=== PATIENT | female | born 1995 | race Caucasian/White ===

== ENCOUNTER 2020-12-09 09:50 | Emergency (ER) | payer SELFPAY ==
[2020-12-09 10:00] VITALS: BP 143/86; PULSE 75; RESP 18; TEMP 36.9; O2SAT 99; BMI 42.5
--- NOTE | 2020-12-09 10:08 | W.ED.SKABFB ---
HPI - Skin/Abscess/Foreign Bdy General: Chief complaint: Skin/Abscess/Foreign Body Stated complaint: Spreading Rash/Blisters Time Seen by Provider: 12/09/20 10:04 Source: patient Mode of arrival: ambulatory Limitations: no limitations History of Present Illness: HPI narrative: Patient woke up this morning with small pruritic rash to the right anterior neck. Unknown exposure the area. Patient denies any other problems. She denies any shortness of breath or chest pain. No swelling to the mouth or tongue. Patient unsure if she is exposed to poison micki or not. MD complaint: rash Onset (ago): hour(s) (Started this morning) Location: neck Severity: mild Quality: pruritic Pain Consistency: constant Relieving factors: none Exacerbating factors: none Context: none Associated symptoms: Reports itching; Deny arthralgias, chills, cough, fever(s), myalgias, nausea, rigidity, short of breath or vomiting Treatments prior to arrival: none Review of Systems Const: Denies: fever(s) or chills Eyes: Denies: change in vision ENMT: Denies: throat pain Card: Denies: chest pain or palpitations Resp: Denies: dyspnea or wheezing GI: Denies: nausea or vomiting : Denies: flank pain Musc: Denies: neck pain or back pain Skin/Breast: Reports: rash, pruritus and new lesions Neuro: Denies: headache(s) or numbness in extremities Psych: Denies: anxiety Pedro/Lymph: Denies: enlarged lymph nodes Physical Exam Const: COMMON NORMALS: no acute distress, patient oriented x3, no limitations, healthy appearing, alert and well nourished HENMT: COMMON NORMALS: normocephalic and atraumatic HEAD & SCALP: normocephalic and atraumatic Eye: COMMON NORMALS: EOMs intact bilaterally Neck/C-Spine: COMMON NORMALS: full ROM, no lymphadenopathy, supple, no meningeal signs and no JVD OTHER: 3 or 4 small vesicles to the right anterior neck with the erythematous base. Appears consistent with contact dermatitis such as poison micki. No abscess. No cellulitis Lymph: LYMPHATIC: no lymphadenopathy noted Chest: COMMONS NORMALS: normal inspection of the chest and normal palpation of entire chest wall Resp: COMMON NORMALS: normal respiratory effort and No retractions Cardio: COMMON NORMALS: no JVD, regular rate and regular rhythm RATE: regular rate RHYTHM: regular rhythm GI: COMMON NORMALS: Normal to inspection, nondistended, normoactive bowel sounds present (Obese) Extremity: COMMON NORMALS: normal to inspection and full ROM Neuro: COMMON NORMALS: patient oriented x3, moves all extremities, no focal motor deficits and no sensory deficits noted SENSORIUM/ORIENTATION: Yes alert MENINGEAL SIGNS: Yes no meningeal signs Psych: COMMON NORMALS: mental status grossly normal, Normal thought process present, cooperative, normal affect and speech normal SPEECH: Yes normal speech THOUGHT PROCESS: Normal thought process present Skin: GENERAL SKIN EXAM: other (Small vesicles with erythematous base to right anterior neck ) OTHER: Consistent with contact dermatitis. Course Vital Signs: Vital signs: Vital Signs Temperature 98.4 F 12/09/20 10:00 Pulse Rate 75 12/09/20 10:00 Respiratory Rate 18 12/09/20 10:00 Blood Pressure 143/86 12/09/20 10:00 Pulse Oximetry 99 12/09/20 10:00 Discharge Plan Discharge Patient Disposition: Home Clinical Impression: Contact dermatitis Qualifiers: Contact dermatitis type: irritant Contact dermatitis trigger: non-food plants Qualified Code(s): L24.7 - Irritant contact dermatitis due to plants, except food Condition: Stable Prescriptions: New prednisone 20 mg tablet See Rx Instructions .ROUTE .COMPLEX 7 Days Qty: 11 RF: 1 hydrocortisone 2.5 % cream 1 applic topical TID PRN (Reason: rash) Qty: 20 RF: 0 Discharge Orders: Discharge ED (Routine); Ordered 12/09/20 Ordered By: Aaron Juan Discharge Diet: Advance as tolerated Discharge Activity: Increase activity as tolerated Patient Instructions: Contact Dermatitis (ED), Poison Micki (ED) Activity Restrictions/Additional Instructions: Avoid excessive heat. Place steroid ointment over the wounds 2-3 times a day for the next 5 to 6 days. Take oral prednisone as directed. Coding Level of Care Code ED Mechanical Equipment Test Engineer for Chg Fwd Exam Comprehensive
[2020-12-09] MEDS: predniSONE 20 mg Tablet 60 MG PO (10:13)
[2020-12-09 10:24] VITALS: PULSE 86; RESP 18
== END 2020-12-09 10:26 | disposition home or self-care (01) ==
PROVIDERS: Emergency Provider Family Medicine
DX: L24.7 Irritant contact dermatitis due to plants, except food (principal)
CPT/HCPCS: 99282; J7512

== ENCOUNTER 2021-02-15 20:34 | Emergency (ER) | payer SELFPAY ==
[2021-02-15 21:00] VITALS: BP 129/85; PULSE 78; RESP 16; TEMP 36.2; O2SAT 98; BMI 45.7
--- NOTE | 2021-02-15 22:33 | W.ED.ABDPA2 ---
HPI - Abdominal Pain General: Chief Complaint: Abdominal Pain Stated Complaint: back/abd pain Time Seen by Provider: 02/15/21 22:33 History of Present Illness: HPI narrative: Ms. Chisholm is a 25-hour lady without significant past medical history presents emerged department due to back pain and lower abdominal pain. She reports the back pain has been chronically bothering her since approximately 5 years ago. She has intermittent, not specifically provoked, episodes of exacerbation. She describes pain that radiates bilaterally from the lumbar region down both legs that is aching and burning in nature. Additionally, starting on Wednesday she began to have urinary symptoms. She describes significant lower pelvic sharp pain which she describes as like having a spike a ball in her vagina. She is currently on her period which is atypical for her, her periods are typically 3 days of heavy bleeding however this has been 9 to 10 days of spotting. Overall the intensity symptoms has worsened. The intensity is now moderate. She has tried [id number]-aqisphc medications without significant relief. No other focal infectious symptoms. Related Data: Date of Last Menstrual Period: 02/15/21 Review of Systems General: Reports: 10 or more systems reviewed and unremarkable except in HPI and below Narrative: CONSTITUTIONAL: denies fever, fatigue, weakness EYES - denies pain, denies loss of vision EARS - denies ear issues. NOSE - denies congestion or rhinorrhea. THROAT - denies sore throat or difficulty swallowing. CARDIOVASCULAR - denies chest pain and palpitations RESPIRATORY - denies shortness of breath and cough GASTROINTESTINAL -see HPI GENITOURINARY -see HPI MUSCULOSKELETAL-see HPI SKIN - denies rashes or new changed skin lesions NEUROLOGIC - denies focal weakness or sensory changes HEMATOLOGIC/LYMPHATIC - denies easy bruising or lymphadenopathy. [facility] ED Female Reproductive History: Date of last menstrual period: 02/15/21 Physical Exam Narrative: EXAM NARRATIVE: GENERAL/CONSTITUTIONAL - well-appearing. No acute distress. Eyes - PERRL, no conjunctival injection ENMT - Atraumatic external nose and ears. Moist mucous membranes NECK - supple. trachea midline CARDIOVASCULAR - regular rate and rhythm. Peripheral pulses 2+ and equal RESPIRATORY -clear to auscultation bilaterally. No retractions or accessory muscle use. ABDOMEN/GI -mild suprapubic tenderness to palpation. Nondistended. No tenderness to percussion or evidence of peritonitis GENITOURINARY -performed with manager quality compliance present. No external vulvar lesions or abnormalities. Moderate amount of white discharge noted at the vaginal vault. Cervix without acute abnormality. Bimanual exam unremarkable. MSK - Extremities without obvious deformity. No significant elicitable tenderness or deformity noted lumbar spine region. SKIN - Warm, Dry NEURO - alert and appropriately oriented. strength and sensation intact. Moves all extremities equally. PSYCH - Appropriate mood and affect Course ED course: - Patient was seen and evaluated by me at bedside - Patient placed on cardiac monitors, IV access obtained - Initial evaluation notable for somewhat uncomfortable appearing, no acute distress - Labs and imaging obtained and reviewed - Fluids, analgesia given - Labs notable for no significant hematologic or metabolic abnormalities. Urinalysis not concerning for urinary tract infection. Wet prep positive for clue cells. -I discussed the results of ED evaluation at this point with the patient. I discussed other possible etiology however most likely the cause is related to BV. I offered to CT imaging which she was comfortable foregoing at this time. - Upon serial reexamination after treatment the patient was improved - Based on patient history, evaluation, labs, and imaging as interpreted the most likely cause of the patient's condition is bacterial vaginosis - The results of ED evaluation were discussed with the patient including prescriptions and/or symptomatic cares (if applicable) including appropriate and responsible use, followup plan, and return precautions. The patient verbalized understanding and felt safe for discharge. - Patient discharged in satisfactory condition. Vital Signs: Vital signs: Vital Signs Temperature 97.2 F L 02/15/21 21:00 Pulse Rate 68 02/16/21 02:07 Respiratory Rate 18 02/16/21 02:07 Blood Pressure 113/69 02/16/21 02:07 Pulse Oximetry 97 02/16/21 02:07 MDM - Abdominal Pain Medical Records: Attestation: I reviewed the patient's medical records. Lab Data: Attestation: I reviewed the patient's lab results. Labs: Lab Results 02/15/21 02/15/21 02/16/21 Range/Units 23:21 23:21 00:35 WBC 10.2 H (4.0-10.0) 10^3/ uL RBC 4.40 (4.1-5.3) 10^6/u L Hgb 13.7 (11.5-15.3) g/dL Hct 43.9 (37.0-47.0) % MCV 99.8 H (81-99) fl MCH 31.1 (28.0-34.0) pg MCHC 31.2 (30.0-36.0) g/dL RDW 12.5 (12.1-15.1) % Plt Count 317 (130-400) 10^3/c mm MPV 10.0 (7.4-10.4) fL Neut % (Auto) 40.4 % Lymph % (Auto) 45.5 % Edwards % (Auto) 8.2 % Eos % (Auto) 5.0 % Baso % (Auto) 0.6 % Neut # (Auto) 4.13 (1.8-7.7) 10^3/u L Lymph # (Auto) 4.7 (0.8-4.8) 10^3/u L Edwards # (Auto) 0.8 (0.2-0.9) 10^3/u L Eos # (Auto) 0.5 (0.0-0.8) 10^3/u L Baso # (Auto) 0.1 (0.0-0.1) 10^3/u L Nucleated RBC % (a uto) 0 % Nucleated RBCs # 0.0 /100WBC Sodium 137 (136-145) mmol/L Potassium 4.4 (3.5-5.1) mmol/L Chloride 102 (98-107) mmol/L Carbon Dioxide 23 (22-29) mmol/L Anion Gap 16.4 (5-19) BUN 11 (6-20) mg/dL Creatinine 0.7 (0.5-0.9) mg/dL GFR Calculation 102.8 (90-130) mL/min Glucose 91 (65-115) mg/dL Calculated Osmolal ity 283 L (285-295) mOsm/k g Calcium 8.8 (8.5-10.5) mg/dL Total Bilirubin 0.2 (0.15-1.2) mg/dL AST 13 (0-32) U/L ALT 12 (0-33) U/L Alkaline Phosphata se 62 (35-105) IU/L Total Protein 7.1 (6.6-8.7) g/dL Albumin 4.0 (3.5-5.2) g/dL Globulin 3.1 (1.3-4.6) g/dL HCG, Qual Negative (Negative) Urine Color (Yellow) Urine Appearance (CLEAR) Urine pH (5-7) Ur Specific Gravit y (1.005-1.030) Urine Protein (Negative) Urine Glucose (UA) (Normal) Urine Ketones (Negative) Urine Blood (Negative) Urine Nitrate (Negative) Urine Bilirubin (Negative) Urine Urobilinogen (Negative) mg/dL Ur Leukocyte Makayla ase (Negative) 02/16/21 Range/Units 00:35 WBC (4.0-10.0) 10^3/ uL RBC (4.1-5.3) 10^6/u L Hgb (11.5-15.3) g/dL Hct (37.0-47.0) % MCV (81-99) fl MCH (28.0-34.0) pg MCHC (30.0-36.0) g/dL RDW (12.1-15.1) % Plt Count (130-400) 10^3/c mm MPV (7.4-10.4) fL Neut % (Auto) % Lymph % (Auto) % Edwards % (Auto) % Eos % (Auto) % Baso % (Auto) % Neut # (Auto) (1.8-7.7) 10^3/u L Lymph # (Auto) (0.8-4.8) 10^3/u L Edwards # (Auto) (0.2-0.9) 10^3/u L Eos # (Auto) (0.0-0.8) 10^3/u L Baso # (Auto) (0.0-0.1) 10^3/u L Nucleated RBC % (a uto) % Nucleated RBCs # /100WBC Sodium (136-145) mmol/L Potassium (3.5-5.1) mmol/L Chloride (98-107) mmol/L Carbon Dioxide (22-29) mmol/L Anion Gap (5-19) BUN (6-20) mg/dL Creatinine (0.5-0.9) mg/dL GFR Calculation (90-130) mL/min Glucose (65-115) mg/dL Calculated Osmolal ity (285-295) mOsm/k g Calcium (8.5-10.5) mg/dL Total Bilirubin (0.15-1.2) mg/dL AST (0-32) U/L ALT (0-33) U/L Alkaline Phosphata se (35-105) IU/L Total Protein (6.6-8.7) g/dL Albumin (3.5-5.2) g/dL Globulin (1.3-4.6) g/dL HCG, Qual (Negative) Urine Color Yellow (Yellow) Urine Appearance Clear (CLEAR) Urine pH 6.5 (5-7) Ur Specific Gravit y 1.020 (1.005-1.030) Urine Protein Neg (Negative) Urine Glucose (UA) Norm (Normal) Urine Ketones 1+ H (Negative) Urine Blood Neg (Negative) Urine Nitrate Negative (Negative) Urine Bilirubin Neg (Negative) Urine Urobilinogen Norm (Negative) mg/dL Ur Leukocyte Makayla ase Negative (Negative) Discharge Plan Discharge Patient Disposition: Home Clinical Impression: Abdominal pain, Bacterial vaginal infection, Chronic back pain Condition: Stable Prescriptions: New Flagyl 500 mg tablet 500 mg PO BID 7 Days Qty: 14 RF: 0 methocarbamol 750 mg tablet 750 mg PO TID PRN (Reason: muscle spasm) Qty: 10 RF: 0 No Action prednisone 20 mg tablet See Rx Instructions .ROUTE .COMPLEX 7 Days Qty: 11 RF: 1 hydrocortisone 2.5 % cream 1 applic topical TID PRN (Reason: rash) Qty: 20 RF: 0 Discharge Orders: Discharge ED (Routine); Ordered 02/16/21 Ordered By: Luis Armando Zee Discharge Diet: Usual diet Discharge Activity: Resume usual activity Patient Instructions: Bacterial Vaginosis (ED), Abdominal Pain (ED), Opioid Safety Activity Restrictions/Additional Instructions: Thank you for visiting the emergency department. You were seen and evaluated for lower abdominal pain. You were found to have bacterial vaginosis which was treated with antibiotics. This is an imbalance in the normal vaginal alejandro. Please follow-up with your primary care provider. Please return to the emergency department for anything that you are concerned about and feel needs emergency department evaluation. Stand Alone Forms: Work/School Release Coding Level of Care Code ED Lean Six Sigma Senior Specialist for Suzanne Mckeon
[2021-02-15 23:23] VITALS: BP 129/59; PULSE 79; RESP 18; O2SAT 98
[2021-02-15] MEDS: morphine 4 mg/mL SDV 1 mL IVP (23:23)
[2021-02-15] MEDS: methocarbamol 750 mg Tablet PO (23:23)
[2021-02-15] MEDS: ketorolac 30 mg/mL INJ 15 MG IVP (23:23)
[2021-02-15 23:41] LABS: Basophils # 0.1 10^3/uL (0.0-0.1); Basophils % 0.6 %; Eosinophils # 0.5 10^3/uL (0.0-0.8); Hematocrit 43.9 % (37.0-47.0); Hemoglobin 13.7 g/dL (11.5-15.3); Lymphocytes # 4.7 10^3/uL (0.8-4.8); Lymphocytes % 45.5 %; Mean Corpuscular HGB Conc 31.2 g/dL (30.0-36.0); Mean Corpuscular Hemoglobin 31.1 pg (28.0-34.0); Mean Corpuscular Volume 99.8 fl (81-99); Monocytes # 0.8 10^3/uL (0.2-0.9); Monocytes % 8.2 %; Neutrophils # 4.13 10^3/uL (1.8-7.7); Neutrophils % 40.4 %; Nucleated Red Blood Cells % 0 %; Platelet Count 317 10^3/cmm (130-400); Red Cell Distribution Width 12.5 % (12.1-15.1); White Blood Count 10.2 10^3/uL (4.0-10.0)
[2021-02-16 00:07] LABS: Alanine Aminotransferase 12 U/L (0-33); Alkaline Phosphatase 62 IU/L (35-105); Aspartate Amino Transferase 13 U/L (0-32); Blood Urea Nitrogen 11 mg/dL (6-20); Calcium 8.8 mg/dL (8.5-10.5); Carbon Dioxide 23 mmol/L (22-29); Chloride 102 mmol/L (98-107); Globulin 3.1 g/dL (1.3-4.6); Glomerular Filtration Rate 102.8 mL/min (90-130); Glucose 91 mg/dL (65-115); Osmolality Calculated 283 mOsm/kg (285-295); Sodium 137 mmol/L (136-145); Total Bilirubin 0.2 mg/dL (0.15-1.2); Total Protein 7.1 g/dL (6.6-8.7)
[2021-02-16 00:09] LABS: Anion Gap 16.4 (5-19); Potassium 4.4 mmol/L (3.5-5.1)
[2021-02-16 00:38] LABS: Add Urine Microscopic? NO; Charge for UA Resulting for Rev
[2021-02-16 00:42] LABS: Bilirubin Urine Neg (Negative); Blood Urine Neg (Negative); Glucose Urine UA Norm (Normal); Ketones Urine 1+ (Negative); Leukocyte Esterase Urine Negative (Negative); Nitrate Urine Negative (Negative); Protein Urine Neg (Negative); Urine Appearance Clear (CLEAR); Urine Color Yellow (Yellow); Urobilinogen Urine Norm (Negative); pH Urine 6.5 (5-7)
[2021-02-16 00:54] LABS: HCG Qualitative Urine. Negative (Negative)
[2021-02-16 02:07] VITALS: BP 113/69; PULSE 68; RESP 18; O2SAT 97
== END 2021-02-16 02:07 | disposition home or self-care (01) ==
PROVIDERS: Emergency Provider Emergency Medicine
DX: R10.9 Unspecified abdominal pain (principal); N76.0 Acute vaginitis; G89.29 Other chronic pain; M54.9 Dorsalgia, unspecified
CPT/HCPCS: 80053; 81003; 81025; 85025; 87210; 96374; 96375; 99283; E0352; J1885; J2270

== ENCOUNTER 2021-12-02 13:54 | Emergency (ER) | payer BC, MEDICAID, SELFPAY ==
[2021-12-02 14:00] VITALS: BP 145/99; PULSE 100; RESP 16; TEMP 36.7; O2SAT 96; BMI 47.8
[2021-12-02 14:06] VITALS: BP 141/75; PULSE 93; RESP 16; O2SAT 93
--- NOTE | 2021-12-02 14:31 | XR_ITS ---
WS: [id number] XR chest 1V portable [id number] REASON FOR EXAM: dyspnea/cough FINDINGS: The heart and mediastinum are within normal limits. Calcified granulomatous disease in both hemithoraces. No acute pulmonary parenchymal or pleural abnormality. Thoracic scoliosis convex left. XR/XR chest 1V portable [id number] IMPRESSION: No acute chest abnormality.
--- NOTE | 2021-12-02 14:34 | ED_ITS ---
HPI - SOB/Dyspnea General: Chief Complaint: Shortness of Breath/Dyspnea Stated Complaint: sob, tightness in chest, whezzing Time Seen by Provider: 12/02/21 14:12 Source: patient Mode of arrival: ambulatory Limitations: no limitations History of Present Illness: HPI Narrative: 26-year-old female presents emergency room complaining of cough congestion moderate sputum production for the last 2 weeks has not really tried anything beyond some fymn-jci-jmmvjji. She feels like at times she describes it as feeling drowning when she lays down denies any hemoptysis. Patient does smoke. She denies any inhaled medications no history of asthma. MD elicited complaint: shortness of breath and cough Onset (ago): week(s) (2) Timing: intermittent Severity: moderate Exacerbating factors: nothing Relieving factors: nothing Associated symptoms: Reports chest congestion, nausea and palpitations; Deny abdominal pain, chest pain, diaphoresis, dizziness, extremity pain, fever(s), hemoptysis, lightheadedness, myalgias, orthopnea, paresthesias, polydipsia, polyuria, rash, sense of impending doom, syncope or vomiting Review of Systems Const: Reports: fatigue and malaise; Denies: fever(s), chills or diaphoresis ENMT: Denies: throat pain, ear or mastoid pain, nasal discharge or nasal congestion Card: Reports: palpitations; Denies: chest pain, lightheadedness, syncope or orthopnea Resp: Reports: dyspnea, productive cough, wheezing and chest congestion; Denies: hemoptysis GI: Reports: nausea; Denies: abdominal pain or vomiting : Denies: flank pain, difficulty voiding, dysuria, urinary frequency or urinary urgency Musc: Denies: extremity pain Skin/Breast: Denies: rash or pruritus Neuro: Denies: dizziness Endo: Denies: polyuria or polydipsia PFSH ED PFSH: Medical History Chronic back pain Social History Smoking and tobacco status: former smoker Alcohol intake: never Female Reproductive History: Date of last menstrual period: 02/15/21 Physical Exam Const: GENERAL APPEARANCE: cooperative and comfortable ORIENTATION/CONSCIOUSNESS: Yes awake, Yes oriented to person, Yes oriented to place and Yes oriented to time HENMT: COMMON NORMALS: normocephalic, atraumatic and hearing grossly normal bilaterally HEAD & SCALP: normocephalic and atraumatic Resp: AUSCULTATION: wheezes (Scant expiratory wheeze) Cardio: COMMON NORMALS: regular rate, regular rhythm and No murmurs present (Cardio) RATE: regular rate RHYTHM: regular rhythm GI: COMMON NORMALS: Soft to palpation and No hepatosplenomegaly present AUSCULTATION: Yes normoactive bowel sounds PALPATION: Yes Soft to palpation, No Tenderness to palpation present (GI), No Guarding due to palpation present (GI) and Yes No hepatosplenomegaly present Extremity: COMMON NORMALS: normal to inspection, capillary refill normal, no clubbing, cyanosis or edema, no calf tenderness and no pedal edema Neuro: SENSORIUM/ORIENTATION: Yes oriented to person, Yes oriented to place and Yes oriented to time Skin: COMMON NORMALS: no rashes or lesions noted GENERAL SKIN EXAM: no rashes or lesions noted Course Vital Signs: Vital signs: Vital Signs Temperature 98.1 F 12/02/21 14:00 Pulse Rate 92 12/02/21 16:00 Respiratory Rate 12 12/02/21 16:00 Blood Pressure 141/86 12/02/21 16:00 Pulse Oximetry 94 12/02/21 16:00 MDM - SOB/Dyspnea Medical Decision Making Treated for reactive airways steroid taper albuterol inhaler also add doxycycline recheck with primary care if not improving the next 3 to 4 days. Medical Records I reviewed the patient's medical records. Lab Data I reviewed the patient's lab results. : 12/02/21 14:41 12/02/21 14:41 Labs/Radiology: Radiology Impressions Chest X-Ray 12/02/21 14:31 IMPRESSION: No acute chest abnormality. Laboratory Results WBC 8.7 10^3/uL (4.0-10.0) 12/02/21 14:41 RBC 4.48 10^6/uL (4.1-5.3) 12/02/21 14:41 Hgb 13.6 g/dL (11.5-15.3) 12/02/21 14:41 Hct 41.2 % (37.0-47.0) 12/02/21 14:41 MCV 92.0 fl (81-99) 12/02/21 14:41 MCH 30.4 pg (28.0-34.0) 12/02/21 14:41 MCHC 33.0 g/dL (30.0-36.0) 12/02/21 14:41 RDW 12.7 % (12.1-15.1) 12/02/21 14:41 Plt Count 330 10^3/cmm (130-400) 12/02/21 14:41 MPV 9.4 fL (7.4-10.4) 12/02/21 14:41 Neut % (Auto) 47.6 % 12/02/21 14:41 Lymph % (Auto) 40.6 % 12/02/21 14:41 Childress % (Auto) 6.2 % 12/02/21 14:41 Eos % (Auto) 4.8 % 12/02/21 14:41 Baso % (Auto) 0.5 % 12/02/21 14:41 Neut # (Auto) 4.13 10^3/uL (1.8-7.7) 12/02/21 14:41 Lymph # (Auto) 3.5 10^3/uL (0.8-4.8) 12/02/21 14:41 Childress # (Auto) 0.5 10^3/uL (0.2-0.9) 12/02/21 14:41 Eos # (Auto) 0.4 10^3/uL (0.0-0.8) 12/02/21 14:41 Baso # (Auto) 0.0 10^3/uL (0.0-0.1) 12/02/21 14:41 Nucleated RBC % (auto) 0 % 12/02/21 14:41 Nucleated RBCs # 0.0 /100WBC 12/02/21 14:41 Sodium 137 mmol/L (136-145) 12/02/21 14:41 Potassium 4.6 mmol/L (3.5-5.1) 12/02/21 14:41 Chloride 101 mmol/L (98-107) 12/02/21 14:41 Carbon Dioxide 27 mmol/L (22-29) 12/02/21 14:41 Anion Gap 13.6 (5-19) 12/02/21 14:41 BUN 14 mg/dL (6-20) 12/02/21 14:41 Creatinine 0.9 mg/dL (0.5-0.9) 12/02/21 14:41 GFR Calculation 76.3 mL/min (90-130) L 12/02/21 14:41 Glucose 92 mg/dL (65-115) 12/02/21 14:41 Calculated Osmolality 284 mOsm/kg (285-295) L 12/02/21 14:41 Calcium 9.5 mg/dL (8.5-10.5) 12/02/21 14:41 Total Bilirubin 0.2 mg/dL (0.15-1.2) 12/02/21 14:41 AST 15 U/L (0-32) 12/02/21 14:41 ALT 12 U/L (0-33) 12/02/21 14:41 Alkaline Phosphatase 71 IU/L (35-105) 12/02/21 14:41 Total Protein 8.0 g/dL (6.6-8.7) 12/02/21 14:41 Albumin 4.5 g/dL (3.5-5.2) 12/02/21 14:41 Globulin 3.5 g/dL (1.3-4.6) 12/02/21 14:41 Discharge Plan Discharge Patient Disposition: Home Clinical Impression: Bronchitis Condition: Stable Prescriptions: New Medrol (Feng) 4 mg tablets,dose pack See Rx Instructions .ROUTE .COMPLEX Qty: 21 0RF Rx Instructions: orally per package directions albuterol sulfate 90 mcg/actuation HFA aerosol inhaler 2 inh INHALATION Q4H PRN (Reason: shortness of breath or wheezing) Qty: 18 0RF No Action Sahra 60 mg Tablet 60 mg PO BID PRN (Reason: Allergy Symptoms) 0RF Karen-[place] Plus Sinus-Cough 5-10-325 mg Capsule See Rx Instructions .ROUTE .COMPLEX 0RF Rx Instructions: per package directions Discharge Orders: Discharge ED (Routine); Ordered 12/02/21 Ordered By: Aidan Ibrahim Discharge Diet: Usual diet Discharge Activity: Increase activity as tolerated Patient Instructions: Opioid Safety Activity Restrictions/Additional Instructions: Chest x-ray is normal the remainder labs are unremarkable. Peers to have a viral bronchitis. We will have you start steroids and albuterol to use as needed. Follow-up with primary care if not improving. Coding Level of Care Code ED Printer Operator for Chg Fwd Exam Comprehensive
[2021-12-02 14:54] LABS: Basophils % 0.5 %; Eosinophils # 0.4 10^3/uL (0.0-0.8); Eosinophils % 4.8 %; Hematocrit 41.2 % (37.0-47.0); Hemoglobin 13.6 g/dL (11.5-15.3); Lymphocytes # 3.5 10^3/uL (0.8-4.8); Lymphocytes % 40.6 %; Mean Corpuscular Hemoglobin 30.4 pg (28.0-34.0); Mean Platelet Volume 9.4 fL (7.4-10.4); Monocytes # 0.5 10^3/uL (0.2-0.9); Monocytes % 6.2 %; Neutrophils # 4.13 10^3/uL (1.8-7.7); Neutrophils % 47.6 %; Nucleated Red Blood Cells % 0 %; Platelet Count 330 10^3/cmm (130-400); Red Blood Count 4.48 10^6/uL (4.1-5.3); Red Cell Distribution Width 12.7 % (12.1-15.1); White Blood Count 8.7 10^3/uL (4.0-10.0)
[2021-12-02 15:09] LABS: Alanine Aminotransferase 12 U/L (0-33); Albumin Level 4.5 g/dL (3.5-5.2); Alkaline Phosphatase 71 IU/L (35-105); Anion Gap 13.6 (5-19); Aspartate Amino Transferase 15 U/L (0-32); Blood Urea Nitrogen 14 mg/dL (6-20); Calcium 9.5 mg/dL (8.5-10.5); Carbon Dioxide 27 mmol/L (22-29); Chloride 101 mmol/L (98-107); Globulin 3.5 g/dL (1.3-4.6); Glomerular Filtration Rate 76.3 mL/min (90-130); Glucose 92 mg/dL (65-115); Osmolality Calculated 284 mOsm/kg (285-295); Potassium 4.6 mmol/L (3.5-5.1); Sodium 137 mmol/L (136-145); Total Bilirubin 0.2 mg/dL (0.15-1.2)
[2021-12-02] MEDS: sodium chloride 0.9% 1,000 ML 999 ML IV (15:12)
[2021-12-02 15:31] VITALS: BP 141/85; PULSE 85; RESP 16; O2SAT 94
[2021-12-02 15:37] VITALS: PULSE 83; RESP 16; O2SAT 96
[2021-12-02] MEDS: ipratropium-albuterol 3 mL Neb INHALATION (15:37)
[2021-12-02 15:42] VITALS: PULSE 86
[2021-12-02 16:00] VITALS: BP 141/86; PULSE 92; RESP 12; O2SAT 94
== END 2021-12-02 16:28 | disposition home or self-care (01) ==
PROVIDERS: Emergency Provider Family Medicine
DX: J40 Bronchitis, not specified as acute or chronic (principal); Z87.891 Personal history of nicotine dependence
CPT/HCPCS: 71045; 80053; 85025; 94640; 96361; 96374; 99284; J2930; J7030

== ENCOUNTER → 2022-03-06 10:13 | Outpatient (BNVA) | payer BC, MEDICAID, SELFPAY | PROVIDERS: Visit Provider Family Medicine | DX: Z11.3 Encounter for screening for infections with a predominantly sexual mode of transmission (principal); N93.9 Abnormal uterine and vaginal bleeding, unspecified; Z12.4 Encounter for screening for malignant neoplasm of cervix; M54.9 Dorsalgia, unspecified; G89.29 Other chronic pain; M72.2 Plantar fascial fibromatosis; Z68.42 Body mass index [BMI] 45.0-49.9, adult | CPT/HCPCS: 80053; 81000; 81025; 82728; 83036; 83550; 84439; 84443; 85025; 87491; 87591; 87661; 88175 ==

== ENCOUNTER 2022-03-19 13:26 | Outpatient (CLI) | payer BC, MEDICAID, SELFPAY ==
--- NOTE | 2022-03-19 13:15 | US_ITS ---
WS: [id number] TRANSVAGINAL PELVIC ULTRASOUND HISTORY: abnormal vaginal bleeding COMPARISON: None available. Uterus: 10.0 cm x 5.6 cm x 6.6 cm. Mildly enlarged anteverted uterus. No fibroid or mass. Endometrium: 0.7 cm. Normal homogeneity. No increased vascularity. Normal size. Right ovary: 4.8 cm x 4.3 cm x 3.8 cm. Ovaries slightly enlarged secondary to a cyst. A simple cyst a ssociated with the ovary measuring 4.0 x 3.3 x 3.2 cm. Good through transmission. No solid component. Left ovary: Poorly visualized ovary. Seen only on transabdominal imaging and not well visualized due to its position. No additional adnexal mass. No free fluid. US/US transvaginal [id number] IMPRESSION: 1. Normal endometrium. 2. Small RIGHT ovarian cyst measures 4.0 x 3.3 x 3.2 cm. 3. LEFT ovary is not well visualized.
== END 2022-03-19 13:27 | disposition home or self-care (01) ==
LOC: RAD 13:27
PROVIDERS: PCP Family Medicine; Visit Provider Family Medicine
DX: N93.9 Abnormal uterine and vaginal bleeding, unspecified (principal); N83.201 Unspecified ovarian cyst, right side
CPT/HCPCS: 76830

== ENCOUNTER → 2022-06-30 15:15 | Outpatient (BNVA) | payer BC, MEDICAID, SELFPAY | PROVIDERS: PCP Family Medicine; Visit Provider Nurse Practitioner Women's Health | DX: N83.201 Unspecified ovarian cyst, right side (principal) | CPT/HCPCS: 76830 ==

== ENCOUNTER 2022-09-01 20:05 | Emergency (ER) | payer BC, MEDICAID, SELFPAY ==
[2022-09-01 20:19] VITALS: BP 173/112; PULSE 95; RESP 19; TEMP 36.7; O2SAT 98; BMI 49.9
--- NOTE | 2022-09-01 21:34 | W.ED.DENTAL ---
HPI - Dental/Oral General: Chief complaint: Dental/Oral Stated complaint: Dental Pain Time Seen by Provider: 09/01/22 21:34 History of Present Illness: 27-year-old female comes in today for complaints of left upper third molar pain. Patient has decay in the tooth with loss of the lateral side of the tooth. Patient reports it broke off earlier today and she had increased pain and discomfort since. Patient reports about 3 months ago she had problems with that same tooth. Patient appears nontoxic. Patient appears in moderate pain. Patient has a history of anemia, obesity, and planter fasciitis. Associated symptoms: Denies fever(s) Review of Systems Const: Denies: fever(s) ENMT: Reports: dental pain Card: Denies: chest pain Resp: Denies: dyspnea : Denies: difficulty voiding Musc: Denies: back pain Neuro: Denies: headache(s) PFSH ED PFSH: Medical History Chronic back pain Gestational hypertension (~2015) managed with medication; resolved post delivery No pertinent past medical history neghx: htn, dm, thyroid, dtv/pe PCP: Dr. Parada Surgical History History of 2015 Family History Family/Other Cancer Paternal aunt--lupus Grandfather Diabetes Paternal Father Diabetes Hyperlipidemia Hypertension Mother Diabetes Thyroid disease Grandmother Diabetes Paternal Denies family history of Colon cancer Ovarian cancer Heart disease Breast cancer Uterine cancer Stroke Physical Exam Const: COMMON NORMALS: alert HENMT: COMMON NORMALS: normocephalic HEAD & SCALP: normocephalic NOSE: Normal nares present MOUTH: Normal oral and palatal mucosa present TEETH & GINGIVA: Yes caries (Decayed third molar left upper jaw) and Yes fair dentition Neck/C-Spine: COMMON NORMALS: full ROM and no lymphadenopathy Resp: COMMON NORMALS: normal respiratory effort Cardio: COMMON NORMALS: regular rate RATE: regular rate Back/Pelvis: COMMON NORMALS: thoracic and lumbar spine normal to inspection Extremity: COMMON NORMALS: normal to inspection Neuro: SENSORIUM/ORIENTATION: Yes alert Skin: COMMON NORMALS: turgor normal GENERAL SKIN EXAM: turgor normal Course Vital Signs: Vital signs: Vital Signs Temperature 98.1 F 09/01/22 20:19 Pulse Rate 95 09/01/22 20:19 Respiratory Rate 19 H 09/01/22 20:19 Blood Pressure 173/112 09/01/22 20:19 Pulse Oximetry 98 09/01/22 20:19 Oxygen Delivery Me thod 09/01/22 20:19 MDM - Dental/Oral Medical Decision Making 27-year-old female comes in today with complaints of dental pain. On exam patient has a decayed third molar left upper jaw. No significant redness or swelling is noted to the gingiva. Differential diagnosis includes periapical abscess, dental caries, odontalgia. No signs of serious illness is noted. Patient be started on antibiotic for coverage of dental infection. Patient was given viscous lidocaine to help control pain. And hydrocodone for severe pain. Patient was given a list of local dental facilities and need for follow-up. Discharge Plan Discharge Patient Disposition: Home Clinical Impression: Toothache, Dental caries Condition: Stable Prescriptions: New amoxicillin-pot clavulanate 875-125 mg tablet 1 tab PO BID Qty: 14 0RF hydrocodone-acetaminophen 5-325 mg tablet 1 tab PO Q8H PRN (Reason: pain (scale score 7-10)) Qty: 7 0RF Lidocaine Viscous 2 % solution 1 applic mucous membrane Q4H PRN (Reason: pain) Qty: 100 0RF No Action norethindrone-e.estradiol-iron [Maritza Fe 1.5/30 (28)] 1.5 mg-30 mcg (21)/75 mg (7) tablet 1 tab PO DAILY Qty: 84 3RF Discharge Orders: Discharge ED (Routine); Ordered 09/01/22 Ordered By: Delfino Gloria Referrals: Odin Parada MD [Primary Care Provider] - Discharge Diet: Usual diet Discharge Activity: Increase activity as tolerated Patient Instructions: Toothache (ED), Opioid Safety Activity Restrictions/Additional Instructions: Good oral care. Use acetaminophen ibuprofen to control pain. Use viscous lidocaine saturated on a cottonball and applied to the hole in the tooth for improved pain control. Use hydrocodone for severe pain. Drink plenty of water with medications. Take antibiotic as directed. Follow-up with dentist for definitive care. 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
[2022-09-01] MEDS: lidocaine 2% viscous 15 mL UDC 5 ML MUCOUS MEM (21:52)
[2022-09-01] MEDS: HYDROcodone-acetaminophen 7.5-325 mg Tablet 1 TAB PO (21:52)
[2022-09-01] MEDS: amoxicillin-clav 875-125 mg Tablet 1 TAB PO (21:52)
== END 2022-09-01 21:49 | disposition home or self-care (01) ==
PROVIDERS: Emergency Provider Nurse Practitioner Family; PCP Family Medicine
DX: K02.9 Dental caries, unspecified (principal); K08.89 Other specified disorders of teeth and supporting structures
CPT/HCPCS: 99283

== ENCOUNTER 2022-10-09 12:53 | Emergency (ER) | payer BC, MEDICAID, SELFPAY ==
[2022-10-09 13:02] VITALS: BP 153/95; PULSE 85; RESP 19; TEMP 36.7; O2SAT 97; BMI 45.7
--- NOTE | 2022-10-09 15:15 | XRR_ITS ---
PROCEDURE INFORMATION: Exam: XR Thoracic Spine Exam date and time: 10/09/2022 3:23 PM Age: 27 years old Clinical indication: Pain and injury or trauma; Fall; Blunt trauma (contusions or hematomas); Pain in thoracic spine; Additional info: Fall with back pain TECHNIQUE: Imaging protocol: Radiologic exam of the thoracic spine. Views: 3 views. COMPARISON: CR XR chest 1V portable [id number] 12/02/2021 3:12 PM FINDINGS: Bones/joints: Vertebral body height is maintained. No subluxation. Normal bone mineralization. Intervertebral disc space height is preserved. No acute fracture. Stable mild scoliosis in the visualized spine. Soft tissues: No paravertebral soft tissue abnormality. No radiopaque foreign body. Lungs: Visualized lungs are clear. XR/XR thoracic spine 3V* [id number] IMPRESSION: 1. No acute fracture of the thoracic spine. CT scan would be recommended if there is continuing clinical concern for fracture. 2. Stable mild scoliosis in the visualized spine.
--- NOTE | 2022-10-09 15:15 | XRR_ITS ---
PROCEDURE INFORMATION: Exam: XR Lumbosacral Spine Exam date and time: 10/09/2022 3:23 PM Age: 27 years old Clinical indication: Pain and injury or trauma; Fall; Blunt trauma (contusions or hematomas); Low back pain; Additional info: Fall with back pain TECHNIQUE: Imaging protocol: Radiologic exam of the lumbosacral spine. Views: 2 or 3 views. COMPARISON: US transvaginal [id number] 06/30/2022 3:18 PM FINDINGS: Bones/joints: 5 [id number] vertebral bodies. Vertebral body height is maintained. No subluxation. Normal bone mineralization. Intervertebral disc space height is preserved. No acute fracture. Soft tissues: No paravertebral soft tissue abnormality. No radiopaque foreign body. XR/XR lumbar spine 2-3V* [id number] IMPRESSION: Negative lumbar spine radiographs. CT scan would be recommended if there is continuing clinical concern for fracture.
--- NOTE | 2022-10-09 15:16 | W.ED.BACK ---
Documented by User: ADRIANA Kim 10/10/22 07:17 HPI - Back Pain/Injury General: Chief Complaint: Back Pain/Injury Stated Complaint: Lower back pain Time Seen by Provider: 10/09/22 13:19 History of Present Illness: Patient is a 27-year-old female comes to the ED with back pain. Patient says back pain started approximately 2 days ago after a fall injury. Patient says she was walking up some bleachers and tripped and fell. When she fell she landed on her back. Over the last couple days her back pain has gotten worse and this morning she had to have help to get out of bed. She rates her pain currently an 8 out of 10. Patient is located in the mid and lower back. Pain radiates down into right leg. Denies any cauda equina symptoms. patient was seen at urgent care and sent here to the ED for further evaluation. She denies any head trauma or loss of consciousness. Associated symptoms: Deny abdominal pain, chills, dysuria, fatigue, fever(s), hematuria, nausea or vomiting Review of Systems Const: Denies: fever(s), chills or fatigue Eyes: Denies: change in vision or eye discomfort ENMT: Denies: throat pain, odynophagia, nasal discharge or nasal congestion Card: Denies: chest pain, palpitations, edema, swelling of feet/ankles, dyspnea on exertion or orthopnea Resp: Denies: dyspnea, productive cough or non-productive cough GI: Denies: abdominal pain, nausea, vomiting, diarrhea, constipation or hematochezia : Denies: flank pain, dysuria or hematuria Musc: Reports: back pain; Denies: neck pain or extremity swelling Skin/Breast: Denies: rash or new lesions Neuro: Denies: headache(s), numbness in extremities or weakness in extremities PFS ED PFSH: Medical History Chronic back pain Gestational hypertension (~2015) managed with medication; resolved post delivery No pertinent past medical history neghx: htn, dm, thyroid, dtv/pe PCP: Dr. Parada Surgical History History of 2016 Family History Family/Other Cancer Paternal aunt--lupus Grandfather Diabetes Paternal Father Diabetes Hyperlipidemia Hypertension Mother Diabetes Thyroid disease Grandmother Diabetes Paternal Denies family history of Colon cancer Ovarian cancer Heart disease Breast cancer Uterine cancer Stroke Social History Substance/Drug Use: never Do you think of yourself as: Straight/Heterosexual Physical Exam Const: COMMON NORMALS: patient oriented x3 HENMT: COMMON NORMALS: normocephalic HEAD & SCALP: normocephalic MOUTH: Normal oral and palatal mucosa present THROAT: posterior oropharynx normal and uvula midline Neck/C-Spine: COMMON NORMALS: supple GENERAL: Yes normal visual inspection Resp: COMMON NORMALS: normal respiratory effort, No retractions, No use of accessory muscles and clear to auscultation bilaterally AUSCULTATION: clear to auscultation bilaterally Cardio: COMMON NORMALS: regular rate, regular rhythm, S1 normal heart sound present, S2 normal heart sound present, No gallops present (Cardio), No clicks present (Cardio), No murmurs present (Cardio) and Peripheral pulses 2+ throughout RATE: regular rate RHYTHM: regular rhythm HEART SOUNDS: S1 normal heart sound present and S2 normal heart sound present PERIPHERAL PULSES: Peripheral pulses 2+ throughout GI: COMMON NORMALS: Normal to inspection, nondistended, normoactive bowel sounds present, Soft to palpation, non-tender and no masses PALPATION: Yes Soft to palpation : COMMON NORMALS: Yes no CVA tenderness BLADDER/KIDNEY EXAM: Yes no CVA tenderness Back/Pelvis: COMMON NORMALS: no CVA tenderness Neuro: COMMON NORMALS: patient oriented x3 GAIT: Yes Normal gait present Course Vital Signs: Vital signs: Vital Signs Temperature 98.0 F 10/09/22 13:02 Pulse Rate 92 10/09/22 15:45 Respiratory Rate 16 10/09/22 15:45 Blood Pressure 155/92 10/09/22 15:45 Pulse Oximetry 96 10/09/22 15:45 Oxygen Delivery Me thod Room Air 10/09/22 15:45 MDM - Back Pain/Injury Labs I reviewed the patient's lab results. Radiology Impressions Lumbar Spine X-Ray 10/09/22 15:15 IMPRESSION: Negative lumbar spine radiographs. CT scan would be recommended if there is continuing clinical concern for fracture. Thoracic Spine X-Ray 10/09/22 15:15 IMPRESSION: 1. No acute fracture of the thoracic spine. CT scan would be recommended if there is continuing clinical concern for fracture. 2. Stable mild scoliosis in the visualized spine. Laboratory Results HCG, Qual Negative (Negative) 10/09/22 16:04 Discharge Plan Discharge Patient Disposition: Home Clinical Impression: Strain of lumbar region, Strain of thoracic back region Condition: Stable Prescriptions: New cyclobenzaprine 10 mg tablet 10 mg PO TID Qty: 14 0RF Medrol (Feng) 4 mg tablets,dose pack See Rx Instructions .ROUTE .COMPLEX Qty: 21 0RF Rx Instructions: orally per package directions naproxen 500 mg tablet 500 mg PO BID PRN (Reason: pain) Qty: 20 0RF No Action norethindrone-e.estradiol-iron [Maritza Fe 1.5/30 (28)] 1.5 mg-30 mcg (21)/75 mg (7) tablet 1 tab PO DAILY Qty: 84 3RF ibuprofen 200 mg Capsule 400 mg PO Q6H PRN (Reason: Pain) Tylenol 325 mg Capsule 650 mg PO QID PRN (Reason: Pain) Discharge Orders: Discharge ED (Routine); Ordered 10/09/22 Ordered By: Rocío Meyer Referrals: Odin Parada MD [Primary Care Provider] - Discharge Diet: Usual diet Discharge Activity: Increase activity as tolerated Patient Instructions: Low Back Strain (ED), Acute Low Back Pain (ED), Lower Back Exercises (ED) Activity Restrictions/Additional Instructions: Xrays show no sign of bone or vertebral injury. We will treat for soft tissue and connective tissue injury for the next several days. Take your medications as indicated- dont drive or drink alcohol while on muscle relaxers. Please take a coupe days off work to take your medications and avoid over activity. 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 Parada Surgical History History of 2015 Family History Family/Other Cancer Paternal aunt--lupus Grandfather Diabetes Paternal Father Diabetes Hyperlipidemia Hypertension Mother Diabetes Thyroid disease Grandmother Diabetes Paternal Denies family history of Colon cancer Ovarian cancer Heart disease Breast cancer Uterine cancer Stroke Social History Substance/Drug Use: never Do you think of yourself as: Straight/Heterosexual Course Vital Signs: Vital signs: Vital Signs Temperature 98.0 F 10/09/22 13:02 Pulse Rate 92 10/09/22 15:45 Respiratory Rate 16 10/09/22 15:45 Blood Pressure 155/92 10/09/22 15:45 Pulse Oximetry 96 10/09/22 15:45 Oxygen Delivery Me thod Room Air 10/09/22 15:45 MDM - Back Pain/Injury Medical Decision Making Rocío Meyer PA-C: I received transfer of care from Edi Quezada PA-C at 1700. He indicated patient's pain had been treated and we are waiting for final x-ray results. X-ray showed no signs of any acute bony abnormality though patient has a mild scoliosis in the thoracic region. I did discuss this with the patient but, also informed her of no acute concerns at this time. 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 Explained to her the medications provided to her could make her feel excessively drowsy and warned her to stay home, not drive, and not drink any alcohol while taking this medication. Information regarding lumbar and thoracic strain provided for at home reference to encourage other [id number] and at home remedies to help with her pain and discomfort. Patient verbalized understanding and agreement to treatment plan. Differential Diagnosis Likely lumbar radiculopathy, sciatica, strain of lumbar region and thoracic back pain Labs Radiology Impressions Lumbar Spine X-Ray 10/09/22 15:15 IMPRESSION: Negative lumbar spine radiographs. CT scan would be recommended if there is continuing clinical concern for fracture. Thoracic Spine X-Ray 10/09/22 15:15 IMPRESSION: 1. No acute fracture of the thoracic spine. CT scan would be recommended if there is continuing clinical concern for fracture. 2. Stable mild scoliosis in the visualized spine. Laboratory Results HCG, Qual Negative (Negative) 10/09/22 16:04 Discharge Plan Discharge Patient Disposition: Home Clinical Impression: Strain of lumbar region, Strain of thoracic back region Condition: Stable Prescriptions: New cyclobenzaprine 10 mg tablet 10 mg PO TID Qty: 14 0RF Medrol (Feng) 4 mg tablets,dose pack See Rx Instructions .ROUTE .COMPLEX Qty: 21 0RF Rx Instructions: orally per package directions naproxen 500 mg tablet 500 mg PO BID PRN (Reason: pain) Qty: 20 0RF No Action norethindrone-e.estradiol-iron [Maritza Fe 1.5/30 (28)] 1.5 mg-30 mcg (21)/75 mg (7) tablet 1 tab PO DAILY Qty: 84 3RF ibuprofen 200 mg Capsule 400 mg PO Q6H PRN (Reason: Pain) Tylenol 325 mg Capsule 650 mg PO QID PRN (Reason: Pain) Discharge Orders: Discharge ED (Routine); Ordered 10/09/22 Ordered By: Rocío Meyer Referrals: Odin Parada MD [Primary Care Provider] - Discharge Diet: Usual diet Discharge Activity: Increase activity as tolerated Patient Instructions: Low Back Strain (ED), Acute Low Back Pain (ED), Lower Back Exercises (ED) Activity Restrictions/Additional Instructions: Xrays show no sign of bone or vertebral injury. We will treat for soft tissue and connective tissue injury for the next several days. Take your medications as indicated- dont drive or drink alcohol while on muscle relaxers. Please take a coupe days off work to take your medications and avoid over activity. 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
[2022-10-09 15:45] VITALS: BP 155/92; PULSE 92; RESP 16; O2SAT 96
[2022-10-09] MEDS: cyclobenzaprine 10 mg Tablet PO (15:46)
[2022-10-09] MEDS: HYDROcodone-acetaminophen 7.5-325 mg Tablet 1 TAB PO (15:46)
[2022-10-09] MEDS: dexamethasone 10 mg/mL INJ IM (15:46)
[2022-10-09 16:12] LABS: HCG Qualitative Urine. Negative (Negative)
== END 2022-10-09 17:53 | disposition home or self-care (01) ==
PROVIDERS: Physician Assistant; Emergency Provider Physician Assistant; PCP Family Medicine
DX: S39.012A Strain of muscle, fascia and tendon of lower back, initial encounter (principal); S29.012A Strain of muscle and tendon of back wall of thorax, initial encounter; W01.0XXA Fall on same level from slipping, tripping and stumbling without subsequent striking against object, initial encounter
CPT/HCPCS: 72072; 72100; 81025; 96372; 99284; J1100

== ENCOUNTER → 2023-04-26 15:00 | Outpatient (BNVA) | payer BC, MEDICAID, SELFPAY | PROVIDERS: PCP Family Medicine; Visit Provider Nurse Practitioner Women's Health | DX: Z01.419 Encounter for gynecological examination (general) (routine) without abnormal findings (principal) | CPT/HCPCS: 88175 ==

== ENCOUNTER → 2024-05-01 07:42 | Outpatient (BNVA) | payer BC, MEDICAID, SELFPAY | PROVIDERS: PCP Family Medicine | DX: J02.9 Acute pharyngitis, unspecified (principal) | CPT/HCPCS: 87071; 87880 ==

== ENCOUNTER → 2024-05-10 15:21 | Outpatient (BNVA) | payer BC, MEDICAID, SELFPAY | PROVIDERS: PCP Family Medicine; Visit Provider Nurse Practitioner Women's Health | DX: Z01.419 Encounter for gynecological examination (general) (routine) without abnormal findings (principal); Z13.29 Encounter for screening for other suspected endocrine disorder; Z13.1 Encounter for screening for diabetes mellitus; N92.6 Irregular menstruation, unspecified; Z13.228 Encounter for screening for other metabolic disorders; N91.2 Amenorrhea, unspecified; N93.9 Abnormal uterine and vaginal bleeding, unspecified; L73.2 Hidradenitis suppurativa | CPT/HCPCS: 80048; 83036; 84439; 84443; 84702 ==

== ENCOUNTER → 2024-06-09 15:00 | Outpatient (BNVA) | payer BC, MEDICAID, SELFPAY | PROVIDERS: PCP Family Medicine; Visit Provider Nurse Practitioner Women's Health | DX: L73.2 Hidradenitis suppurativa (principal) | CPT/HCPCS: 80048 ==

== ENCOUNTER → 2024-08-22 11:48 | Outpatient (BNVA) | payer BC, MEDICAID, SELFPAY | PROVIDERS: PCP Family Medicine; Visit Provider Family Medicine | DX: E11.9 Type 2 diabetes mellitus without complications (principal) | CPT/HCPCS: 80048; 83036 ==

== ENCOUNTER → 2025-03-20 09:23 | Outpatient (BNVA) | payer BC, MEDICAID, SELFPAY | PROVIDERS: PCP Family Medicine; Visit Provider Family Medicine | DX: E11.9 Type 2 diabetes mellitus without complications (principal) | CPT/HCPCS: 80053; 83036 ==

== ENCOUNTER → 2025-05-15 16:00 | Outpatient (BNVA) | payer BC, MEDICAID, SELFPAY | PROVIDERS: PCP Family Medicine; Visit Provider Nurse Practitioner Women's Health | DX: N93.9 Abnormal uterine and vaginal bleeding, unspecified (principal) | CPT/HCPCS: 84439; 84443; 85025 ==